=== PATIENT | male | born 1945 | race Caucasian/White ===

== ENCOUNTER 2017-05-25 13:57 | Inpatient (IN) | payer MEDICARE, OTHER ==
[~2017-05-25] VITALS: Ht 180.3 cm; Wt 81.0 kg
[2017-05-25 14:26] LABS: BASOPHILS % (AUTO) 0.4 % (0-1); EOSINOPHILS # (AUTO) 0.4 X10'3 (0-0.9); EOSINOPHILS % (AUTO) 5.2 % (0-6); HEMATOCRIT 42.9 % (42.0-52.0); HEMOGLOBIN 15.1 g/dl (14.0-17.9); LYMPHOCYTES # (AUTO) 2.3 X10'3 (1.1-4.8); LYMPHOCYTES % (AUTO) 26.5 % (21-51); MEAN CORPUSCULAR HGB CONC 35.1 % (33.0-36.5); MEAN CORPUSCULAR VOLUME 88.2 FL (78-98); MEAN PLATELET VOLUME 8.3 FL (7.4-10.4); MONOCYTES # (AUTO) 0.8 X10'3 (0-0.9); MONOCYTES % (AUTO) 8.8 % (2-12); NEUTROPHILS # (AUTO) 5.1 X10'3 (1.8-7.7); NEUTROPHILS % (AUTO) 59.1 % (42-75); PLATELET COUNT 243 X10'3 (140-440); RED BLOOD COUNT 4.87 X10'6 (4.70-6.10); RED CELL DISTRIBUTION WIDTH 13.3 % (11.5-14.5); WHITE BLOOD COUNT 8.6 X10'3 (4.5-11.0)
[2017-05-25 14:39] LABS: INR 0.9 INR; PARTIAL THROMBOPLASTIN TIME 28 SECONDS (22-32); PROTHROMBIN TIME 9.7 SECONDS (9.0-12.0)
[2017-05-25 14:43] LABS: ALANINE AMINOTRANSFERASE 28 U/L (12-78); ALBUMIN 3.9 G/DL (3.4-5.0); ALBUMIN/GLOBULIN RATIO 1.2 (1.1-1.5); ALKALINE PHOSPHATASE 108 IU/L (46-116); ANION GAP 11 (8-16); ASPARTATE AMINO TRANSFERASE 15 U/L (10-37); BILIRUBIN,TOTAL 0.4 MG/DL (0.1-1.0); BLOOD UREA NITROGEN 16 MG/DL (7-18); CALCIUM 9.6 MG/DL (8.5-10.1); CHLORIDE 102 MMOL/L (99-107); GLUCOSE 168 MG/DL (70-104); SODIUM 141 MMOL/L (135-145); TOTAL CARBON DIOXIDE 28.3 MMOL/L (24-32); TOTAL PROTEIN 7.2 G/DL (6.4-8.2); eGFR 74 ML/MIN
[2017-05-25] MEDS ORDERED: ATEN-169 PO (15:16)
[2017-05-25] MEDS ORDERED: NITR0.4T51 SL (15:16)
[2017-05-25] MEDS ORDERED: SUCR1ORA2 PO (15:16)
[2017-05-25] MEDS ORDERED: aspirin 81mg tab.chew PO ONE (15:20)
[2017-05-25] MEDS ORDERED: nitroGLYCERIN 1gm ointment UD TP ONE (16:00)
[2017-05-25] MEDS ORDERED: METF1000 PO (16:38)
[2017-05-25] MEDS ORDERED: AMLO2.5T2 PO (16:38)
[2017-05-25] MEDS ORDERED: GLIP5TAB13 PO (16:39)
[2017-05-25] MEDS ORDERED: PANT-47 PO (16:39)
[2017-05-25] MEDS ORDERED: magnesium 4gm in 100ml NS 100 ML IV PRN (16:40)
[2017-05-25] MEDS ORDERED: metoprolol tartrate 50mg tablet PO ONE (16:40)
[2017-05-25] MEDS ORDERED: mag hydrox/Alum hydrox/simeth 30ml oral suspension PO PRN (16:40)
[2017-05-25] MEDS ORDERED: magnesium hydroxide 30ml (MOM) UD suspension PO PRN (16:40)
[2017-05-25] MEDS ORDERED: dextrose 50%-water 50ml dispensing syringe IV PRN ×2 (16:40)
[2017-05-25] MEDS ORDERED: glucagon, human recombinant 1mg kit SUBCUT PRN (16:40)
[2017-05-25] MEDS ORDERED: potassium Cl 20 mEq SR tablet PO PRN ×2 (16:40)
[2017-05-25] MEDS ORDERED: heparin 10,000 units/1 ML INJ IV ONE (16:40)
[2017-05-25] MEDS ORDERED: aspirin 325mg tablet PO ONE (16:40)
[2017-05-25] MEDS ORDERED: dextrose ORAL solution 15 GM/59 ML bottle PO PRN ×2 (16:40)
[2017-05-25] MEDS ORDERED: magnesium 2GM in 50ml NS 50 ML IV PRN (16:40)
[2017-05-25] MEDS ORDERED: potassium Cl 40MEQ/NS 500ml 500 ML IV PRN ×2 (16:40)
[2017-05-25] MEDS ORDERED: ondansetron/PF 4mg/2ml inj IV PRN (16:40)
[2017-05-25] MEDS ORDERED: morphine 2 MG/ML inj. syringe IV PRN ×2 (16:40)
[2017-05-25] MEDS ORDERED: MESSAGE TO PHARMACY PO ONE (16:40)
[2017-05-25] MEDS ORDERED: magnesium Cl slow-release 64mg tablet PO PRN (16:40)
[2017-05-25] MEDS ORDERED: acetaminophen 325mg tablet PO PRN (16:40)
[2017-05-25] MEDS ORDERED: insulin Lispro (HumaLOG) vial - multi-dose SQ SCH (16:40)
[2017-05-25 17:15] LABS: BASOPHILS % (AUTO) 0.4 % (0-1); EOSINOPHILS # (AUTO) 0.4 X10'3 (0-0.9); EOSINOPHILS % (AUTO) 5.1 % (0-6); HEMATOCRIT 41.9 % (42.0-52.0); HEMOGLOBIN 14.7 g/dl (14.0-17.9); LYMPHOCYTES % (AUTO) 25.2 % (21-51); MEAN CORPUSCULAR HEMOGLOBIN 30.8 PG (27.0-31.0); MEAN CORPUSCULAR HGB CONC 34.9 % (33.0-36.5); MEAN CORPUSCULAR VOLUME 88.1 FL (78-98); MEAN PLATELET VOLUME 8.5 FL (7.4-10.4); MONOCYTES # (AUTO) 0.6 X10'3 (0-0.9); MONOCYTES % (AUTO) 7.7 % (2-12); NEUTROPHILS # (AUTO) 4.8 X10'3 (1.8-7.7); NEUTROPHILS % (AUTO) 61.6 % (42-75); PLATELET COUNT 217 X10'3 (140-440); RED BLOOD COUNT 4.76 X10'6 (4.70-6.10); RED CELL DISTRIBUTION WIDTH 13.1 % (11.5-14.5); WHITE BLOOD COUNT 7.7 X10'3 (4.5-11.0)
[2017-05-25 17:26] LABS: HEMOGLOBIN A1C 8.5 % (4.5-6.2)
[2017-05-25 17:28] LABS: INR 0.9 INR; PARTIAL THROMBOPLASTIN TIME 28 SECONDS (22-32); PROTHROMBIN TIME 9.7 SECONDS (9.0-12.0)
[2017-05-25] MEDS: metoprolol tartrate 25mg tablet PO SCH (19:58)
[2017-05-25] MEDS ORDERED: insulin glargine (Lantus) pen - multi-dose SQ ONE (22:34)
[2017-05-25] MEDS: insulin glargine (Lantus) pen - multi-dose SQ SCH (22:45)
[2017-05-26] VITALS (11 sets, daily range): BP systolic 105–140; BP diastolic 65–84
[2017-05-26 01:51] LABS: BASOPHILS # (AUTO) 0.1 X10'3 (0-0.2); BASOPHILS % (AUTO) 0.9 % (0-1); EOSINOPHILS # (AUTO) 0.5 X10'3 (0-0.9); EOSINOPHILS % (AUTO) 5.5 % (0-6); HEMATOCRIT 37.3 % (42.0-52.0); HEMOGLOBIN 13.1 g/dl (14.0-17.9); LYMPHOCYTES # (AUTO) 2.3 X10'3 (1.1-4.8); LYMPHOCYTES % (AUTO) 27.3 % (21-51); MEAN CORPUSCULAR HEMOGLOBIN 31.2 PG (27.0-31.0); MEAN CORPUSCULAR HGB CONC 35.2 % (33.0-36.5); MEAN CORPUSCULAR VOLUME 88.7 FL (78-98); MEAN PLATELET VOLUME 8.6 FL (7.4-10.4); MONOCYTES # (AUTO) 0.8 X10'3 (0-0.9); MONOCYTES % (AUTO) 9.6 % (2-12); NEUTROPHILS # (AUTO) 4.8 X10'3 (1.8-7.7); NEUTROPHILS % (AUTO) 56.7 % (42-75); PLATELET COUNT 213 X10'3 (140-440); RED BLOOD COUNT 4.21 X10'6 (4.70-6.10); RED CELL DISTRIBUTION WIDTH 12.7 % (11.5-14.5); WHITE BLOOD COUNT 8.5 X10'3 (4.5-11.0)
[2017-05-26 02:10] LABS: ALANINE AMINOTRANSFERASE 26 U/L (12-78); ALBUMIN 3.2 G/DL (3.4-5.0); ALBUMIN/GLOBULIN RATIO 1.1 (1.1-1.5); ALKALINE PHOSPHATASE 85 IU/L (46-116); ANION GAP 8 (8-16); ASPARTATE AMINO TRANSFERASE 14 U/L (10-37); BILIRUBIN,TOTAL 0.4 MG/DL (0.1-1.0); BLOOD UREA NITROGEN 21 MG/DL (7-18); BUN/CREATININE RATIO 17.5 (5.4-32.0); CALCIUM 8.9 MG/DL (8.5-10.1); CHLORIDE 103 MMOL/L (99-107); CHOL/HDL RATIO 6.3 (0.00-4.99); CHOLESTEROL 189 MG/DL (0-200); GLUCOSE 180 MG/DL (70-104); HDL CHOLESTEROL 30 MG/DL (35-60); LDL CHOLESTEROL 98 MG/DL (50-100); MAGNESIUM 1.5 MG/DL (1.5-2.4); SODIUM 139 MMOL/L (135-145); TOTAL CARBON DIOXIDE 28.2 MMOL/L (24-32); TOTAL PROTEIN 6.1 G/DL (6.4-8.2); TRIGLYCERIDES 413 MG/DL (20-135); eGFR 60 ML/MIN
[2017-05-26 02:11] LABS: POTASSIUM 3.8 MMOL/L (3.5-5.1)
[2017-05-26] MEDS: K and/or MAG REPLACEMENT MC SCH (07:56)
[2017-05-26] MEDS: amLODIPine 2.5mg tablet PO SCH (07:59)
[2017-05-26] MEDS: pantoprazole 40mg Tablet.DR PO SCH (07:59)
[2017-05-26] MEDS: aspirin 325mg tablet PO SCH (07:59)
[2017-05-26] MEDS: atorvastatin 20mg tablet PO SCH (07:59)
[2017-05-26] MEDS: metoprolol tartrate 25mg tablet PO SCH ×2 (07:59→20:02)
[2017-05-26] MEDS: losartan 50mg tablet PO SCH (08:00)
[2017-05-26] MEDS ORDERED: nitroGLYCERIN 0.4mg SUBLingual tab SL PRN (08:05)
[2017-05-26] MEDS ORDERED: regadenoson 0.4mg/5ml syringe IV ONE ×2 (08:05→11:52)
[2017-05-26] MEDS ORDERED: metoprolol tartrate 1mg/ml inj IV PRN (08:05)
[2017-05-26] MEDS ORDERED: aminophylline 250mg/10ml inj. IV PRN (08:05)
[2017-05-26] MEDS: heparin 10,000 units/1 ML INJ IV PRN ×2 (09:44→23:39)
[2017-05-26] MEDS ORDERED: aminophylline inj. 0 ML IV ONE (11:52)
[2017-05-26] MEDS: insulin glargine (Lantus) pen - multi-dose SQ SCH (21:00)
[2017-05-27 02:00] VITALS: BP 128/82
[2017-05-27 06:19] LABS: BASOPHILS % (AUTO) 0.5 % (0-1); EOSINOPHILS # (AUTO) 0.3 X10'3 (0-0.9); EOSINOPHILS % (AUTO) 5.2 % (0-6); HEMATOCRIT 43.5 % (42.0-52.0); HEMOGLOBIN 15.3 g/dl (14.0-17.9); LYMPHOCYTES # (AUTO) 1.9 X10'3 (1.1-4.8); LYMPHOCYTES % (AUTO) 28.2 % (21-51); MEAN CORPUSCULAR HEMOGLOBIN 30.7 PG (27.0-31.0); MEAN CORPUSCULAR HGB CONC 35.1 % (33.0-36.5); MEAN CORPUSCULAR VOLUME 87.5 FL (78-98); MEAN PLATELET VOLUME 8.7 FL (7.4-10.4); MONOCYTES # (AUTO) 0.6 X10'3 (0-0.9); MONOCYTES % (AUTO) 9.6 % (2-12); NEUTROPHILS # (AUTO) 3.8 X10'3 (1.8-7.7); NEUTROPHILS % (AUTO) 56.5 % (42-75); PLATELET COUNT 219 X10'3 (140-440); RED BLOOD COUNT 4.97 X10'6 (4.70-6.10); RED CELL DISTRIBUTION WIDTH 13.3 % (11.5-14.5); WHITE BLOOD COUNT 6.7 X10'3 (4.5-11.0)
[2017-05-27 06:30] VITALS: BP 140/88
[2017-05-27 06:51] LABS: ALANINE AMINOTRANSFERASE 29 U/L (12-78); ALBUMIN 3.6 G/DL (3.4-5.0); ALKALINE PHOSPHATASE 86 IU/L (46-116); ANION GAP 6 (8-16); ASPARTATE AMINO TRANSFERASE 15 U/L (10-37); BILIRUBIN,TOTAL 0.5 MG/DL (0.1-1.0); BLOOD UREA NITROGEN 18 MG/DL (7-18); BUN/CREATININE RATIO 13.8 (5.4-32.0); CALCIUM 8.9 MG/DL (8.5-10.1); CHLORIDE 103 MMOL/L (99-107); GLUCOSE 156 MG/DL (70-104); MAGNESIUM 1.8 MG/DL (1.5-2.4); POTASSIUM 3.9 MMOL/L (3.5-5.1); SODIUM 140 MMOL/L (135-145); TOTAL CARBON DIOXIDE 30.7 MMOL/L (24-32); TOTAL PROTEIN 7.1 G/DL (6.4-8.2); eGFR 54 ML/MIN
[2017-05-27] MEDS: pantoprazole 40mg Tablet.DR PO SCH (07:49)
[2017-05-27] MEDS: atorvastatin 20mg tablet PO SCH (07:49)
[2017-05-27] MEDS: losartan 50mg tablet PO SCH (07:49)
[2017-05-27] MEDS: amLODIPine 2.5mg tablet PO SCH (07:49)
[2017-05-27] MEDS: metoprolol tartrate 25mg tablet PO SCH (07:49)
[2017-05-27] MEDS: K and/or MAG REPLACEMENT MC SCH (07:50)
[2017-05-27] MEDS ORDERED: isosorbide mononitrate 30mg tab.SR.24H PO SCH (08:10)
[2017-05-27] MEDS: aspirin 325mg tablet PO SCH (08:55)
[2017-05-27 11:00] VITALS: BP 91/62
[2017-05-27 15:00] VITALS: BP 96/65
[2017-05-27] MEDS ORDERED: morphine 5 MG/ML injection IV PRN ×2 (16:24)
[2017-05-27] MEDS ORDERED: ATOR20TA66 PO (16:46)
[2017-05-27] MEDS ORDERED: METO25TA6 PO (16:46)
[2017-05-27] MEDS ORDERED: ASPI-1 PO (16:46)
== END 2017-05-27 17:10 | disposition home or self-care (01) | DRG 303 ==
LOC: ER 13:59 → ED HOLD 16:37 → PCU 3S 05-26 11:10
PROVIDERS: ADMIT Legal Medicine; ATTEND Internal Medicine
PROC: 4A02XM4 Measurement of Cardiac Total Activity, External Approach (ICD-10-PCS; principal; 2017-05-26)
PROC: 3E073KZ Introduction of Other Diagnostic Substance into Coronary Artery, Percutaneous Approach (ICD-10-PCS; 2017-05-26)
DX: I25.10 Atherosclerotic heart disease of native coronary artery without angina pectoris (principal); I48.0 Paroxysmal atrial fibrillation; E11.9 Type 2 diabetes mellitus without complications; E78.5 Hyperlipidemia, unspecified; I10 Essential (primary) hypertension; K21.9 Gastro-esophageal reflux disease without esophagitis; Z79.899 Other long term (current) drug therapy; Z79.84 Long term (current) use of oral hypoglycemic drugs
CPT/HCPCS: 36415; 71045; 78452; 80053; 80061; 82948; 83036; 83735; 84484; 85025; 85610; 85730; 87070; 93005; 93017; 99285; A9500; J0280; J1644; J1815